=== PATIENT | female | born 1985 | race Caucasian/White ===

== ENCOUNTER 2022-11-16 03:58 | Emergency (ER) | payer BC, SELFPAY ==
[2022-11-16 04:16] VITALS: BP 140/96; PULSE 101; RESP 19; O2SAT 99
--- NOTE | 2022-11-16 04:17 | ECG_ITS ---
Measurements Intervals [place] Rate: 103 P: 111 HI: 126 QRS: 124 QRSD: 92 T: 142 QT: 338 QTc: 444 Interpretive Statements SINUS TACHYCARDIA POSSIBLE LEFT ATRIAL ENLARGEMENT [-0.1mV P WAVE IN V1/V2] INCOMPLETE RIGHT BUNDLE BRANCH BLOCK LEFT POSTERIOR FASCICULAR BLOCK [QRS AXIS > 109, INFERIOR Q] MINIMAL ST DEPRESSION [0.025+ mV ST DEPRESSION] NO PREVIOUS ECG AVAILABLE FOR COMPARISON Electronically Signed On 11-16-2022 18:21:58 CDT by Ashlyn Gonzales M.D.
[2022-11-16 04:18] VITALS: TEMP 36.6
--- NOTE | 2022-11-16 04:21 | ED.GENADULT ---
HPI - General Adult General Chief complaint: Dizziness Stated complaint: Dizzy Time Seen by Provider: 11/16/22 04:01 History of Present Illness HPI narrative: this is a 37-year-old female presenting ED with positional vertigo. Patient said that she had a glass of wine tonight and felt dizzy like the room was spinning. She then went to bed and realized that when she laid down she triggered another episode. Then made her very anxious she came to the emergency department for evaluation. and has no symptoms in between events. . She denies double vision, dysarthria, dysphagia or dystaxia. she has no other neurologic deficits. She denies any tinnitus or loss of hearing. Denies recent URI. Related Data Allergies Allergy/AdvReac Type Severity Reaction Status Date / Time Sulfa (Sulfonamide Allergy Rash Verified 11/16/22 04:23 Antibiotics) Exam Narrative: APPEARANCE: No apparent distress. Head: atraumatic. EYES: EOMI, NOSE: Atraumatic NECK: Trachea midline RESPIRATORY: No increased rate of breathing CARDIOVASCULAR: RRR, ABDOMINAL: Non-distended MUSCULOSKELETAl: No obvious deformities NEURO: Alert. Cranial nerves 2-12 grossly intact. Sensation light touch, motor function cerebellar function intact for 4 extremities. Gait exam was normal. no nystagmus at rest SKIN:: Warm, dry. Normal color PSYCHIATRIC: Normal affect Course Vital Signs Vital signs: Vital Signs Pulse Rate 101 H 11/16/22 04:16 Respiratory Rate 19 11/16/22 04:16 Blood Pressure 140/96 H 11/16/22 04:16 Pulse Oximetry 99 11/16/22 04:16 Temperature 97.9 F 11/16/22 04:18 Pulse Rate 71 11/16/22 05:30 Respiratory Rate 17 11/16/22 05:30 Blood Pressure 111/82 11/16/22 05:30 Pulse Oximetry 100 11/16/22 05:30 Medical Decision Making MDM Narrative Medical decision making narrative: -Presentation: 37-year-old presenting with vertigo. 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 She lives with her Cam -External Chart Review: none -Hx from independent Sources: Cam at bedside -Discussion of Management/Consultants: none -Independent interpretation of studies: none Dx tests considered but not ordered: brain imaging-not indicated and trigger bull episodic vertigo. -Procedures: Daisy maneuver - repeated x3 with decreasing vertigo symptoms -Interventions: 1 L normal saline, 1 mg Versed, 25 mg meclizine, scopolamine patch, 4 mg Zofran -Shared decision making / Disposition: Upon re-evaluation the patient still has some symptoms but she is able to ambulate, she is tolerating p.o.. She is comfortable going home with medications and information the Daisy maneuver. She has been given return precautions. -RX: Meclizine, scopolamine Vital Signs Vital Signs: Vital Signs Pulse Rate 101 H 11/16/22 04:16 Respiratory Rate 19 11/16/22 04:16 Blood Pressure 140/96 H 11/16/22 04:16 Pulse Oximetry 99 11/16/22 04:16 Temperature 97.9 F 11/16/22 04:18 Pulse Rate 71 11/16/22 05:30 Respiratory Rate 17 11/16/22 05:30 Blood Pressure 111/82 11/16/22 05:30 Pulse Oximetry 100 11/16/22 05:30 Discharge Plan Discharge Clinical Impression: Benign paroxysmal positional vertigo Patient Disposition: Home, Self-Care Condition: Stable Instructions: Antibiotic Form, Benign Paroxysmal Positional Vertigo (ED) Additional Instructions: You were seen in the emergency department for vertigo. Please take meclizine and scopolamine for your symptoms. You can perform the Daisy maneuver at home if you find it helpful. Please return emergency department if you develop double vision, difficulty speaking or moving 1 of your extremities. Please follow-up with your primary care physician. Prescriptions: New m
[2022-11-16] MEDS: ONDANSETRON INJ 4 MG/2 ML VIAL IV PUSH (04:35)
[2022-11-16] MEDS: MECLIZINE HCL 25 MG TABLET PO (04:36)
[2022-11-16] MEDS: SODIUM CHLORIDE 0.9% IV 1,000 ML 999 ML IV CONT (04:37)
[2022-11-16] MEDS: MIDAZOLAM HCL (*CRX) 2 MG/2 ML VIAL 1 MG IV PUSH (04:48)
[2022-11-16] MEDS: SCOPOLAMINE 1.5 MG PATCH TRANSDERM (05:09)
[2022-11-16 05:30] VITALS: BP 111/82; PULSE 71; RESP 17; O2SAT 100
== END 2022-11-16 05:49 | disposition home or self-care (01) ==
PROVIDERS: Emergency Provider Emergency Medicine
DX: H81.10 Benign paroxysmal vertigo, unspecified ear (principal); R00.0 Tachycardia, unspecified; R94.31 Abnormal electrocardiogram [ECG] [EKG]; I45.2 Bifascicular block
CPT/HCPCS: 93005; 96361; 96374; 96375; 99284; A9270; J2250; J2405; J3360; J7030